=== PATIENT | female | born 2000 | race Caucasian/White ===

== ENCOUNTER 2022-05-19 18:53 | Emergency (ER) | payer MEDICAID ==
[~2022-05-19] VITALS: Ht 165.1 cm; Wt 59.1 kg
[2022-05-19 19:21] VITALS: BP 130/78
== END 2022-05-19 19:23 | disposition home or self-care (01) ==
LOC: ER 18:54 → EDBD 18:54 → ER 19:23
DX: Z00.8 Encounter for other general examination (principal); R00.0 Tachycardia, unspecified; Z72.89 Other problems related to lifestyle
CPT/HCPCS: 99283